=== PATIENT | female | born 1990 | race American Indian/Alaskan Native ===

== ENCOUNTER 2019-07-16 00:18 | Emergency (ER) | payer SELFPAY ==
--- NOTE | 2019-07-16 07:50 | Emergency Department Report ---
Vomiting/Diarrhea - HPI Chief Complaint: Nausea/Vomiting/Diarrhea Stated Complaint: FLU SX/BODY PAIN Time Seen by Provider: 07/16/19 07:31 Severity: moderate Nausea/Vomiting Severity: Mild Diarrhea Severity: Moderate Pain Location: Generalized Symptoms: Yes Watery Diarrhea, Yes Able to Tolerate Fluids, No Bloody diarrhea, No Fever, No Recent Unusual Foods, No Recent Untreated Water, No Recent use of Antibiotics, No Family w/ Similar Symptoms, No Contacts w/ Similar Symptoms ED Review of Systems ROS: Stated complaint: FLU SX/BODY PAIN Other details as noted in HPI Comment: All other systems reviewed and negative Constitutional: no symptoms reported. denies: chills, fever ENT: denies: throat pain Respiratory: denies: cough Gastrointestinal: diarrhea. denies: abdominal pain Skin: denies: rash Neurological: denies: headache ED Past Medical Hx - Surgical History Past Surgical History?: No Additional Surgical History: Hernia Repair, Hemrroids - Social History Smoking Status: Current Every Day Smoker Substance Use Type: None - Medications Home Medications: Home Medications Medication Instructions Recorded Confirmed Last Taken Type Ondansetron [Zofran Odt] 4 mg PO Q8HR PRN #12 tab.rapdis 07/16/19 Unknown Rx Vomiting Diarrhea Exam - Exam General: Vital signs noted. No distress. Alert and acting appropriately. HEENT: Yes Moist Mucous Membranes, No Pharyngeal Erythema, No Pharyngeal Exudates, No Rhinorrhea, No Conjuctival Injection, No Frontal Tenderness, No Maxillary Tenderness Neck: No Adenopathy, No Rigidity Lungs: Yes Clear Lung Sounds, Yes Good Air Exchange, No Wheezes, No Stridor, No Cough, No Nasal Flaring, No Retractions, No Use of Accessory Muscles Neurologic: Alert and oriented, no deficits. Musculoskeletal: Unremarkable. ED Course Vital Signs 07/16/19 07/16/19 00:40 02:35 Temperature 100.4 F H 100.1 F H Pulse Rate 90 90 Respiratory 18 18 Rate Blood Pressure 133/71 133/71 O2 Sat by Pulse 96 97 Oximetry Critical care attestation.: If time is entered above; I have spent that time in minutes in the direct care of this critically ill patient, excluding procedure time. ED Disposition Clinical Impression: Nausea & vomiting Qualifiers: Vomiting type: unspecified Vomiting Intractability: unspecified Qualified Code(s): R11.2 - Nausea with vomiting, unspecified Diarrhea Qualifiers: Diarrhea type: unspecified type Qualified Code(s): R19.7 - Diarrhea, unspecified Disposition: DC-01 TO HOME OR SELFCARE Is pt being admited?: No Does the pt Need Aspirin: No Condition: Stable Instructions: Gastroenteritis (ED) Additional Instructions: Drink plenty fluids at least 8-10 cups of water daily. Eat bananas, apple rice and drink tea. Stay away from diary products until symptoms are gone. Get plenty rest. Ok to take advil or tylenol as directed by package insert for fever or pain. If you develop abdominal pain increasing vomiting or vomiting blood or blood in your stool return to the ER. Follow up with your doctor or [facility] in 2-3 days . Prescriptions: Ondansetron [Zofran Odt] 4 mg PO Q8HR PRN #12 tab.rapdis PRN Reason: Nausea Referrals: PRIMARY CARE, [Primary Care Provider] - 3-5 Days Forms: Work/School Release Form(ED)
[2019-07-16 07:51] VITALS: BP 128/70
== END 2019-07-16 08:05 | disposition home or self-care (01) ==
LOC: ED 00:18
DX: R19.7 Diarrhea, unspecified (principal); R11.2 Nausea with vomiting, unspecified; F17.200 Nicotine dependence, unspecified, uncomplicated; Z88.0 Allergy status to penicillin